=== PATIENT | female | born 1950 | race Asian ===

== ENCOUNTER 2020-12-21 12:56 | Emergency (ER) | payer BC, MEDICARE, OTHER ==
[~2020-12-21] VITALS: Ht 167.6 cm; Wt 77.3 kg
[2020-12-21] MEDS ORDERED: [UNRECOGNIZED DRUG - OTHER] (14:08)
[2020-12-21] MEDS ORDERED: GLUCOPHAGE500 MG/TAB PO (14:19)
[2020-12-21] MEDS ORDERED: ACTOS 15MG TAB15 MG PO (14:19)
[2020-12-21] MEDS ORDERED: CALCIUM 600-D 61 TAB PO (14:20)
[2020-12-21] MEDS ORDERED: TRICOR145 MG PO (14:20)
[2020-12-21] MEDS ORDERED: HCTZ 25MG TAB25 MG PO (14:21)
[2020-12-21] MEDS ORDERED: EPA FISH OIL1 SGL PO (14:21)
[2020-12-21] MEDS ORDERED: ASPIRIN 81M81 MG/TA2 PO (14:22)
[2020-12-21] MEDS ORDERED: MOBIC15 MG PO (14:22)
[2020-12-21] MEDS ORDERED: NORVASC 10MG10 MG PO (14:22)
[2020-12-21] MEDS ORDERED: LIPITOR20 MG PO (14:23)
[2020-12-21] MEDS ORDERED: FOSAMAX 70MG TA70 MG PO (14:23)
[2020-12-21 14:29] VITALS: BP 144/69; PULSE 82; TEMP 98.5
== END 2020-12-21 14:30 | disposition home or self-care (01) ==
LOC: COL.ER 12:56
DX: S09.90XA Unspecified injury of head, initial encounter (principal); I10 Essential (primary) hypertension; E78.5 Hyperlipidemia, unspecified; E11.9 Type 2 diabetes mellitus without complications; Z79.899 Other long term (current) drug therapy; Z79.84 Long term (current) use of oral hypoglycemic drugs; W10.9XXA Fall (on) (from) unspecified stairs and steps, initial encounter; Y92.22 Religious institution as the place of occurrence of the external cause